=== PATIENT | male | born 1950 | race Caucasian/White ===

== ENCOUNTER 2022-10-20 14:35 | Outpatient (CLI) | payer OTHER | END 2022-10-20 14:40 | disposition home or self-care (01) | LOC: LAB 14:35 | PROVIDERS: ATTEND Urology | DX: R97.20 Elevated prostate specific antigen [PSA] (principal) ==

== ENCOUNTER 2022-11-13 07:34 | Outpatient (CLI) | payer OTHER | END 2022-11-13 07:44 | disposition home or self-care (01) | LOC: SONOGRAMA 07:34 | PROVIDERS: ATTEND Urology | DX: D29.1 Benign neoplasm of prostate (principal); N41.1 Chronic prostatitis ==